=== PATIENT | female | born 1975 | race Caucasian/White ===

== ENCOUNTER 2017-08-29 07:23 | Emergency (ER) | payer MEDICAID ==
[~2017-08-29] VITALS: Ht 172.7 cm; Wt 99.8 kg
[2017-08-29 08:09] LABS: ABSOLUTE BASOPHILS 0.1 thou/uL (0.0-0.2); ABSOLUTE EOSINOPHILS 0.1 thou/uL (0.0-0.7); ABSOLUTE LYMPHOCYTES 1.2 thou/uL (0.8-5.3); ABSOLUTE MONOCYTES 0.8 thou/uL (0.0-1.2); ABSOLUTE NEUTROPHILS 7.6 thou/uL (1.6-8.1); BASOPHILS 0.5 %; EOSINOPHILS 0.9 %; HEMATOCRIT 37.4 % (37.0-47.0); HEMOGLOBIN 12.4 gm/dL (12.0-15.0); LYMPHOCYTES 12.7 %; MCH 25.9 pg (26.0-34.0); MCHC 33.1 g/dL (28.0-37.0); MCV 78.1 fL (80.0-100.0); MONOCYTES 8.1 %; NUCLEATED RBCS 0 /100WBC; PLATELET COUNT* 188 thou/uL (150-400); POLYS 77.8 %; RBC 4.78 mil/uL (4.20-5.00); RDW-CV 13.8 % (10.5-14.5); WBC 9.8 thou/uL (4.0-11.0)
[2017-08-29 08:14] LABS: CALCIUM 7.8 mg/dL (8.5-10.1); CREATININE 1.8 mg/dL (0.6-1.3); POTASSIUM 4.1 mmol/L (3.5-5.1)
[2017-08-29 08:25] LABS: ALBUMIN 1.3 g/dL (3.4-5.0); TOTAL BILIRUBIN 0.2 mg/dL (<0.1-1.0)
[2017-08-29 08:26] LABS: URINE BILIRUBIN NEGATIVE (Negative); URINE BLOOD 2+ (Negative); URINE CLARITY CLEAR; URINE COLOR YELLOW; URINE GLUCOSE-RANDOM 3+ (Negative); URINE KETONES NEGATIVE (Negative); URINE LEUKOCYTES-REFLEX NEGATIVE (Negative); URINE NITRITE-REFLEX NEGATIVE (Negative); URINE PROTEIN 3+ (Negative); URINE UROBILINOGEN 0.2 E.U./dl (0.2-1.0)
[2017-08-29 08:37] LABS: BACTERIA-REFLEX 1-9 Few /HPF (None Seen); CRYSTALS None Seen /LPF (None Seen); HYALINE CASTS 4-10 Moderate /LPF (None Seen); MUCUS 0-3 Light strn/LPF (None Seen); SQUAMOUS 0-3 Few /LPF (0-3); URINE RBC 3-10 Few /HPF (0-2); URINE WBC-REFLEX 0-5 Rare /HPF (0-5)
[2017-08-29 09:34] VITALS: BP 163/94
--- NOTE | 2017-08-29 14:28 | EKG ---
[place] [address] ELECTROCARDIOGRAM REPORT Name: FANNY MARIANO Room: [facility]#: [id number] Admission: 08/29/17 Attend Phys: Discharge: 08/29/17 Date of : 77 Report #: [id number] THIS REPORT FOR: //name// [place] [facility] Test Date: 2017-08-29 Test Time: 08:14:49 Pat Name: FANNY MARIANO Department: Room: Gender: F Help Aid: Jayde CALABRESE : 1975 Requested By: Kristian Charles Order Number: [id number] MD: Watson Navarro Measurements Intervals [place] Rate: 97 P: 51 DE: 152 QRS: 32 QRSD: 82 T: 51 QT: 402 QTc: 511 Interpretive Statements Sinus rhythm Prolonged QT interval No previous ECG available for comparison Electronically Signed On 08-29-2017 14:28:33 CDT by Watson Navarro [email or web address] <ELECTRONICALLY SIGNED> By: Watson Navarro MD, [facility] 08/29/17 1428 0814 3 Watson Navarro MD, FACC /EPI
== END 2017-08-29 09:36 | disposition short-term general hospital (02) ==
LOC: M.ERS 07:23
PROVIDERS: Emergency Medicine
DX: O14.93 Unspecified pre-eclampsia, third trimester (principal); E11.9 Type 2 diabetes mellitus without complications; Z3A.36 36 weeks gestation of pregnancy